=== PATIENT | female | born 2000 | race Caucasian/White ===

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

== ENCOUNTER 2019-01-25 16:09 | Emergency (ER) | payer SELFPAY ==
[~2019-01-25] VITALS: Ht 165.1 cm; Wt 67.8 kg
[~2019-01-25 16:09] MED LIST changes: +CEPH-443 PO; +DICY10CA40 PO; -DICY10CA60 PO; +DIPH1TAB PO; -OMEP20CA16 PO; +OMEP20CA17 PO; +ONDA4TAB14 PO; +SULF1TAB31 PO; +TRAM50TA2 PO
[2019-01-25 16:15] VITALS: Ht 165.1 cm; Wt 67.8 kg
[2019-01-25] MEDS ORDERED: ACETAMINOPHEN 500 MG TAB PO STA (18:31)
[2019-01-25 19:41] VITALS: BP 122/65; PULSE 70; RESP 18
== END 2019-01-25 19:42 | disposition home or self-care (01) ==
LOC: FTE 16:09
DX: N39.0 Urinary tract infection, site not specified (principal)
CPT/HCPCS: 81003; 81025; 87086; 99283